=== PATIENT | female | born 1975 | race African-American/Black ===

== ENCOUNTER 2017-02-18 13:20 | Emergency (ER) | payer OTHER ==
[~2017-02-18] VITALS: Ht 180.3 cm; Wt 75.0 kg
[2017-02-18 13:22] VITALS: BP 148/96; Ht 180.3 cm; Wt 75.0 kg
== END 2017-02-18 15:22 | disposition left against medical advice (07) ==
LOC: ED 13:20
DX: Z53.21 Procedure and treatment not carried out due to patient leaving prior to being seen by health care provider (principal)